=== PATIENT | female | born 1955 | race Caucasian/White ===

== ENCOUNTER 2016-12-13 09:16 | Emergency (ER) | payer OTHER, MEDICARE ==
[~2016-12-13] VITALS: Ht 154.9 cm; Wt 50.0 kg
[~2016-12-13 09:16] MED LIST: ACET250T3 PO; DOXY100T18 PO; GABA300C3 PO; HYDR-3533 PO
[2016-12-13 09:19] VITALS: BP 156/85; PULSE 84; RESP 16; TEMP 97.7; O2SAT 97
[2016-12-13] MEDS ORDERED: ACETAMINOPHEN/HYDROcodone 325 MG/5 MG TAB PO ONE (09:45)
[2016-12-13] MEDS ORDERED: ONDANSETRON ODT 4 MG TAB PO ONE (09:45)
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
[2016-12-13 12:03] VITALS: BP 132/65
== END 2016-12-13 12:06 | disposition home or self-care (01) ==
LOC: NEPD 09:16
DX: S16.1XXA Strain of muscle, fascia and tendon at neck level, initial encounter (principal); R51 Headache; G93.2 Benign intracranial hypertension; V43.62XA Car passenger injured in collision with other type car in traffic accident, initial encounter; Y93.9 Activity, unspecified; Y92.410 Unspecified street and highway as the place of occurrence of the external cause; Y99.8 Other external cause status
CPT/HCPCS: 70450; 72125; 99284; L0150

== ENCOUNTER 2016-12-23 14:59 | Emergency (ER) | payer MEDICARE ==
[~2016-12-23] VITALS: Ht 154.9 cm; Wt 49.0 kg
[2016-12-23 15:08] VITALS: BP 125/77; PULSE 78; RESP 16; TEMP 98.2; O2SAT 100
[2016-12-23] MEDS ORDERED: GABA300C5 PO (15:44)
[2016-12-23] MEDS ORDERED: ACETA500 PO (15:44)
[2016-12-23 15:53] VITALS: BP 148/79; PULSE 70; RESP 20; O2SAT 100
[2016-12-23 16:14] LABS: AUTOMATED NEUTROPHIL # 1.7 TH/MM3 (1.8-7.7); BASOPHIL % 0.6 % (0.0-2.0); EOSINOPHIL # 0.1 TH/MM3 (0-0.4); EOSINOPHIL % 1.2 % (0.0-4.0); HEMATOCRIT 38.1 % (35.0-46.0); HEMO FLAGS DIFF FINAL; LYMPHOCYTE # 2.7 TH/MM3 (1.0-4.8); MEAN CELL VOLUME 92.6 FL (80.0-100.0); MEAN CORPUSCULAR HGB CONC 33.5 % (32.0-36.0); MONO % 8.2 % (0.0-8.0); PLATELET COUNT 194 TH/MM3 (150-450); RED BLOOD COUNT 4.11 MIL/MM3 (4.00-5.30); RED CELL DISTRIBUTION WIDTH 11.9 % (11.6-17.2); WHITE BLOOD COUNT 4.9 TH/MM3 (4.0-11.0)
--- NOTE | 2016-12-23 16:25 | PD ---
HPI Chief Complaint: GI Complaint Time Seen by Provider: 15:52 Travel History International Travel<30 days: No Contact w/Intl Traveler<30days: No Traveled to known affect area: No History of Present Illness HPI This 61-year-old female says she is having diarrhea since December 05. On that day she started having watery diarrhea. She had about 30 episodes and for 5 days. Since then she continues to have loose stools. She feels some rumbling in her belly but she is not having abdominal pain. She took Imodium which did not help. The stool is very watery. She occasionally leaks stool. She is not aware of fever. She is generally healthy. Has not been any travel. She is not aware of anyone else that has been sick PFSH Past Medical History Hx Anticoagulant Therapy: No Cardiovascular Problems: No Chemotherapy: No Cerebrovascular Accident: No Diabetes: No Neurologic: Yes (INTRACRANIAL HTN) Respiratory: No ?: Not : 1 Para: 1 Past Surgical History Appendectomy: Yes Cholecystectomy: Yes Gynecologic Surgery: Yes (R FALLOPIAN TUBE REMOVED) Hysterectomy: No Other Surgery: Yes (CERVICAL-LUMBAR LAMINECTOMY) Social History Alcohol Use: No Tobacco Use: No Substance Use: No Allergies-Medications (Allergen,Severity, Reaction): Coded Allergies: Bactrim (Verified Allergy, Severe, RASH, 12/23/16) Cipro (Verified Allergy, Severe, Anaphylaxis, 12/23/16) Penicillin (Verified Allergy, Severe, Anaphylaxis, 12/23/16) Phenobarbital (Verified Allergy, Unknown, DOES NOT REMEMBER, 12/23/16) Reported Meds & Prescriptions Reported Meds & Active Scripts Active Reported Gabapentin 300 Mg Cap 300 Mg PO TID Diamox Sequels ER 12 HR (Acetazolamide) 500 Mg Cap 500 Mg PO TID Review of Systems General / Constitutional: No: Fever, Chills Eyes: No: Diploplia, Blurred Vision HENT: No: Headaches, Vertigo Cardiovascular: No: Chest Pain or Discomfort, Palpitations Respiratory: No: Cough, Shortness of Breath Gastrointestinal: Positive: Diarrhea, No: Nausea, Vomiting, Abdominal Pain Genitourinary: No: Frequency, Dysuria Musculoskeletal: No: Myalgias, Arthralgias Skin: No Rash, No Itching Neurologic: No: Weakness, Dizziness Endocrine: No: Heat Intolerance Hematologic/Lymphatic: No: Easy Bruising Physical Exam Narrative GENERAL: Well-developed female SKIN: Focused skin assessment warm/dry. HEAD: Atraumatic. Normocephalic. EYES: Pupils equal and round. No scleral icterus. No injection or drainage. ENT: No nasal bleeding or discharge. Mucous membranes pink and moist. NECK: Trachea midline. No JVD. CARDIOVASCULAR: Regular rate and rhythm. No murmur appreciated. RESPIRATORY: No accessory muscle use. Clear to auscultation. Breath sounds equal bilaterally. GASTROINTESTINAL: Abdomen soft, non-tender, nondistended. Hepatic and splenic margins not palpable. MUSCULOSKELETAL: No obvious deformities. No clubbing. No cyanosis. No edema. NEUROLOGICAL: Awake and alert. No obvious cranial nerve deficits. Motor grossly within normal limits. Normal speech. PSYCHIATRIC: Appropriate mood and affect; insight and judgment normal. Data Data Last Documented VS Vital Signs Date Time Temp Pulse Resp B/P Pulse Ox O2 Delivery O2 Flow Rate FiO2 12/23/16 16:55 65 20 119/57 99 12/23/16 15:08 98.2 Orders Complete Blood Count With Diff (12/23/16 16:01) Comprehensive Metabolic Panel (12/23/16 16:01) Enteric Path (Stool) (12/23/16 16:01) Labs Laboratory Tests Test 12/23/16 16:10 White Blood Count 4.9 TH/MM3 Red Blood Count 4.11 MIL/MM3 Hemoglobin 12.7 GM/DL Hematocrit 38.1 % Mean Corpuscular Volume 92.6 FL Mean Corpuscular Hemoglobin 31.0 PG Mean Corpuscular Hemoglobin 33.5 % Concent Red Cell Distribution Width 11.9 % Platelet Count 194 TH/MM3 Mean Platelet Volume 7.7 FL Neutrophils (%) (Auto) 35.0 % Lymphocytes (%) (Auto) 55.0 % Monocytes (%) (Auto) 8.2 % Eosinophils (%) (Auto) 1.2 % Basophils (%) (Auto) 0.6 % Neutrophils # (Auto) 1.7 TH/MM3 Lymphocytes # (Auto) 2.7 TH/MM3 Monocytes # (Auto) 0.4 TH/MM3 Eosinophils # (Auto) 0.1 TH/MM3 Basophils # (Auto) 0.0 TH/MM3 CBC Comment DIFF FINAL Differential Comment Sodium Level 142 MEQ/L Potassium Level 3.7 MEQ/L Chloride Level 112 MEQ/L Carbon Dioxide Level 20.0 MEQ/L Anion Gap 10 MEQ/L Blood Urea Nitrogen 21 MG/DL Creatinine 1.00 MG/DL Estimat Glomerular Filtration 56 ML/MIN Rate Random Glucose 90 MG/DL Calcium Level 8.5 MG/DL Total Bilirubin 0.3 MG/DL Aspartate Amino Transf 26 U/L (AST/SGOT) Alanine Aminotransferase 38 U/L (ALT/SGPT) Alkaline Phosphatase 68 U/L Total Protein 7.5 GM/DL Albumin 4.1 GM/DL [facility] Medical Decision Making Medical Screen Exam Complete: Yes Emergency Medical Condition: Yes Medical Record Reviewed: Yes Differential Diagnosis Differential includes enteritis, colitis, dysentery Narrative Course Lab work shows slight lowering of the bicarbonate and B urine of 20. I encouraged her to increase her fluids. She has been unable to produce a stool specimen. I'm going to prescribe a trial of Flagyl. I told her that if this is not improved things a couple of days she needs to call GI for follow-up Diagnosis Primary Impression: Enteritis Scripts Metronidazole (Flagyl)500 Mg [id number] Mg PO TID 21 Days Ref 0 Prov:Guanako Whiting MD 12/23/16 Disposition: 01 DISCHARGE HOME Condition: Stable Guanako Whiting MD December 23, 2016 16:25
[2016-12-23 16:27] LABS: CHLORIDE 112 MEQ/L (98-107); POTASSIUM 3.7 MEQ/L (3.5-5.1); SODIUM (NA) 142 MEQ/L (136-145)
[2016-12-23 16:30] LABS: ANION GAP 10 MEQ/L (5-15)
[2016-12-23 16:31] LABS: BLOOD UREA NITROGEN 21 MG/DL (7-18)
[2016-12-23 16:33] LABS: ALT (GPT) 38 U/L (10-53); AST (GOT) 26 U/L (15-37)
[2016-12-23 16:34] LABS: GLOMERULAR FILTRATION RATE 56 ML/MIN (>89)
[2016-12-23 16:35] LABS: TOTAL BILIRUBIN ADULT 0.3 MG/DL (0.2-1.0)
[2016-12-23 16:36] LABS: ALKALINE PHOSPHATASE 68 U/L (45-117)
[2016-12-23 16:55] VITALS: BP 119/57; PULSE 65; RESP 20; O2SAT 99
[2016-12-23] MEDS ORDERED: METR-1 PO (17:28)
== END 2016-12-23 17:53 | disposition home or self-care (01) ==
LOC: PHED 14:59
DX: K52.9 Noninfective gastroenteritis and colitis, unspecified (principal); Z86.69 Personal history of other diseases of the nervous system and sense organs
CPT/HCPCS: 80053; 85025; 99284